=== PATIENT | female | born 1945 | race Caucasian/White ===

== ENCOUNTER 2016-12-19 09:14 | Outpatient (CLI) | payer OTHER ==
--- NOTE | 2016-12-19 11:08 | DIAGNOSTIC IMAGING REPORT ---
PROCEDURE: MG BILATERAL SCREENING W/CAD INDICATION: SCREENING TECHNIQUE: Standard CC and MLO views bilaterally. Computer aided detection was used. COMPARISON: 06/09/2015 FINDINGS: Mildly dense fibrofatty tissue is present bilaterally. Stable anterior right breast cystic structure. No developing densities, areas of architectural distortion, or suspicious microcalcifications. IMPRESSION: 1. Stable mammograms without radiographic evidence of malignancy. RESULT CODE: 2- Benign findings. A. A negative report should not delay biopsy if a dominant or clinically suspicious mass is present. 10-15% of cancers are not identified by x-ray. B. A negative report may reinforce clinical impression. C. Adenosis and dense breasts may obscure an underlying neoplasm. D. False positive reports average 6-10%. E.. A yearly screening mammogram is recommended. A reminder letter will be scheduled.
[2016-12-21] MEDS ORDERED: TRAMADOL HCL50 MG PO (18:12)
[2016-12-21] MEDS ORDERED: ACIPHEX20 MG PO (18:13)
[2016-12-21] MEDS ORDERED: ATIVAN0.5 MG PO (18:13)
== END 2016-12-19 23:00 ==
LOC: MAM SRH 09:14
DX: Z12.31 Encounter for screening mammogram for malignant neoplasm of breast (principal)

== ENCOUNTER 2017-01-29 09:58 | Outpatient (CLI) | payer OTHER ==
[~2017-01-29 09:58] MED LIST: ACIPHEX20 MG PO; ATIVAN0.5 MG PO; TRAMADOL HCL50 MG PO
--- NOTE | 2017-01-29 10:42 | DIAGNOSTIC IMAGING REPORT ---
PROCEDURE: US ABDOMEN VASCULAR-AAA INDICATION: AORTIC ANEURYSM TECHNIQUE: Grijalva scale, color Doppler and spectral ultrasound of the abdominal aorta. COMPARISON: CTA abdomen pelvis 03/23/2016. FINDINGS: Moderate atherosclerosis with mid abdominal aortic peripheral thrombus. Maximal diameter of the aorta: 4.1 cm proximally, 4.5 cm mid and 4.3 cm distally. Both iliac arteries measure 1.5 cm in diameter. IMPRESSION: 1. Stable 4.5 cm mid and distal abdominal aortic aneurysm.
== END 2017-01-29 23:00 ==
LOC: US SRH 09:58
DX: I71.4 Abdominal aortic aneurysm, without rupture (principal)

== ENCOUNTER 2017-02-05 16:14 | Emergency (ER) | payer OTHER ==
--- NOTE | 2017-02-05 18:16 | DIAGNOSTIC IMAGING REPORT ---
PROCEDURE: XR ABDOMEN 1 VIEW INDICATION: ABDOMINAL PAIN TECHNIQUE: AP supine view (two images). COMPARISON: None. FINDINGS: Moderate stool. Small bowel pattern is normal. Moderate to marked degenerative changes of the lumbar spine. Surgical clips overlying the symphysis pubis. IMPRESSION: 1. Moderate stool. While this may be normal, consider obstipation. 2. Moderate to marked degenerative changes of the lumbar spine. 3. Otherwise negative abdomen.
--- NOTE | 2017-02-05 18:19 | DIAGNOSTIC IMAGING REPORT ---
PROCEDURE: XR LUMBAR SPINE 2 OR 3 VIEWS INDICATION: LOWER BACK PAIN TECHNIQUE: Three views. COMPARISON: None. FINDINGS: There are moderate to marked degenerate change of the lower lumbar spine with marked disc space narrowing at L4-5 and L5-S1, and marked facet disease. There are mild degenerative changes of the mid and upper lumbar spine with minimal old wedge compression deformities of the lower thoracic levels. There is no evidence of acute process or fracture. IMPRESSION: 1. Moderate to marked degenerative changes of the lumbar spine most pronounced at the lower lumbar levels (L4-5 and L5-S1) 2. Findings discussed with Dr. Zurita.
--- NOTE | 2017-02-05 23:38 | DIAGNOSTIC IMAGING REPORT ---
PROCEDURE: ABDOMEN/PELVIS WITH CONTRAST CLINICAL INDICATION: ABDOMINAL PAIN TECHNIQUE: 135 ml of Isovue 300 were injected intravenously and axial images were obtained of the abdomen and pelvis with sagittal and coronal reformations. COMPARISON: 04/19/2016 FINDINGS: ABDOMEN: Clear lung bases. Normal sized heart. No hiatal hernia. Mildly diffusely hypodense liver. Surgically absent gallbladder. Bilateral renal cysts. Fusiform dilatation of the mid to distal abdominal aorta. Circumferential mural thrombus. The aorta measures 4.6 cm in maximal AP diameter by about 4.1 cm transversely. The adrenal glands, pancreas, spleen are unremarkable. There are no suspicious calcifications, retroperitoneal adenopathy or masses. The stomach, upper bowel loops, and mesentery are normal. Tiny fat containing ventral abdominal wall hernia. No free fluid or inflammation. PELVIS: The appendix and uterus are surgically absent. Pelvic bowel loops are normal. No adenopathy, free fluid, or pelvic mass. Moderately severe disc degeneration in the lower lumbar spine. IMPRESSION: 1. No acute process. 2. Stable abdominal aortic aneurysm. 3. Surgically absent gallbladder, appendix, uterus. 4. Findings called to the emergency room. All CT scans at this facility use dose modulation, iterative reconstruction, and/or weight-based dosing when appropriate to reduce radiation dose to as low as reasonably achievable.
--- NOTE | 2017-02-06 00:13 | ED CLINICAL REPORT ---
Clinical Report - Physicians/Mid Levels [facility] [address] [place] [address] 02/05/2017 16:14 Patient: MARKUS VARGHESE Time Seen: 16:21 Feb 05 2017. Arrived- By private vehicle. Historian- patient. CPT: ER phys charges level 4 (#[id number]). HISTORY OF PRESENT ILLNESS Chief Complaint: ABDOMINAL PAIN and FLANK PAIN and back pain. It is described as "pain". It is described as located in the right side of the back, right abdomen, right lower quadrant, right pelvis and left abdomen. It is described as located in the left lower quadrant, left pelvis and left side of the back, in the periumbilical area and in the pelvic area. This started today Back pain is worse than usual and appears to radiate to the front from both sides. Pain also radiates down both legs to her feet. she can be no more specific than "the pain is in my bones" and is still present. At its maximum, severity described as moderate. When seen in the E.D., severity described as moderate. Modifying factors- worsened by movement. Relieved by rest. The patient has had nausea and loss of appetite. No vomiting or diarrhea. No recent travel. Similar symptoms previously: Several times, milder. Diagnosis: constipation (low back pain). Recent medical care: The patient was seen recently at another facility in a clinic. REVIEW OF SYSTEMS The patient has had constipation and back pain (chronically). No black stools, hematemesis, difficulty with urination, pain with urination or urinary frequency. No fever, sore throat, chest pain, difficulty breathing or cough. No joint pain, skin rash or chills. All systems otherwise negative, except as recorded above. PAST HISTORY Hernia. Aortic Aneurysm. US done 1 week ago showing stable AAA at 4.5 cm. Abdominal Pain. Fibromyalgia. UTI - Urinary Tract Infection. Chronic Back Pain. Back Pain. --16:26 Alexander Valenzuela R.N. Shoulder Injury. --16:28 Alexander Valenzuela R.N. GERD. Appendectomy. Bladder Suspension. Cholecystectomy. Hysterectomy. --16:27 Alexander Valenzuela R.N. Shoulder Surgery. Medications: Multivitamins Oral. Ativan. Asophex. Tramadol. Allergies: "most antibiotics". Codeine. morphine. Penicillins. Sulfa Antibiotics. Tetanus Toxoids. Toradol. SOCIAL HISTORY Light tobacco smoker (cigarette)- less than 1/2 a pack per day. No alcohol use or drug use. ADDITIONAL NOTES The nursing notes have been reviewed. PHYSICAL EXAM Vital Signs: 02/05/2017 16:23 BP: 140/70. HR: 72. RR: 16. O2 saturation: 92%. Temp: 98.2 F. Pain level now: 07/30. Appearance: Alert. Appears to be in pain. Patient in mild distress. Eyes: Eyes normal inspection. ENT: Pharynx normal. Neck: Normal inspection. CVS: Normal heart rate and rhythm. Heart sounds normal. Pulses normal. Respiratory: No respiratory distress. Breath sounds normal. Chest nontender. Abdomen: Soft. Moderate tenderness in the right and left side of the abdomen, periumbilical area, right lower quadrant, suprapubic area, left lower quadrant and lower abdomen. Bowel sounds normal. No mass. Back: Normal inspection. Skin: Skin warm. Normal skin color. No rash. Extremities: Extremities exhibit normal ROM. No lower extremity edema. Neuro: Oriented X 3. No motor deficit. No sensory deficit. Reflexes normal. LABS, X-RAYS, AND EKG Abdominal CT: IMPRESSION: 1. No acute process. 2. Stable abdominal aortic aneurysm. 3. Surgically absent gallbladder, appendix, uterus. The study was interpreted contemporaneously by me and discussed with the radiologist. Laboratory Tests: UA-Culture if indicated: (LEVAR: 02/05/2017 15:22) ( MsgRcvd 02/05/2017 17:10) Final results Test Result Flag Units (Reference) URINE COLOR STRAW URINE APPEARANCE CLEAR URINE GLUCOSE NEGATIVE (NEGATIVE) URINE BILIRUBIN NEGATIVE (NEGATIVE) URINE KETONE NEGATIVE (NEGATIVE) URINE SPECIFIC GRAVITY <= 1.005 L (1.010-1.030) URINE PH 6.0 (5.0-8.0) URINE PROTEIN NEGATIVE (NEGATIVE) URINE UROBILINOGEN 0.2 EU/dL (0.2-1.0) URINE NITRITE NEGATIVE (NEGATIVE) URINE BLOOD NEGATIVE (NEGATIVE) URINE LEUK ESTERASE TRACE (NEGATIVE) URINE RBC NONE SEEN rbc/hpf (0-1) URINE WBC 10-15 wbc/hpf (0-1) URINE EPITHELIAL CELLS >15 EPI/hpf (0-5) URINE BACTERIA MODERATE (2+ TO 3+) (NONE SEEN) URINE COMMENT CULTURE INDICATED URINE CULTURES ARE SET-UP BASED ON THE FOLLOWING CRITERIA:POSITIVE NITRITEPOSITIVE LEUKOCYTE ESTERASEGREATER THAN 10 WHITE BLOOD CELLSMODERATE (2+) OR GREATER BACTERIA CBC w Diff: (LEVAR: 02/05/2017 16:55) ( [facility] 02/05/2017 17:10) Final results Test Result Flag Units (Reference) WHITE BLOOD COUNT 12.9 H K/uL (4.5-11.5) RED BLOOD COUNT 5.77 H M/uL (4.00-5.20) HEMOGLOBIN 16.7 H gm/dL (12.0-16.0) HEMATOCRIT 49.9 H % (36.0-46.0) MEAN CELL VOLUME 86 fL (80-100) MEAN CORPUSCULAR HGB 29 pg (26-34) MEAN CORPUSCULAR HGB CONC 34 g/dL (31-37) RED CELL DISTRIBUTION WIDTH 14.6 % (11.6-14.8) PLATELET COUNT 214 K/uL (150-400) NEUTROPHIL % 62.1 % (50-75) LYMPH % 28.3 % (25-40) MONO % 6.8 % (3-14) EOSINOPHIL % 2.1 % (0-4) BASOPHIL % 0.7 % (0-2) Lipase: (LEVAR: 02/05/2017 16:55) ( [facility] 02/05/2017 17:26) Final results Test Result Flag Units (Reference) LIPASE 291 U/L (73-393) AMYLASE 64 U/L (25-115) CHEM 13 PANEL: (LEVAR: 02/05/2017 16:55) ( [facility] 02/05/2017 17:34) Final results Test Result Flag Units (Reference) GLUCOSE 146 H mg/dL (70-110) BUN 12 mg/dL (7-18) CREATININE 0.7 mg/dL (0.6-1.3) Estimated GFR >60 mL/min Estimated GFR- >60 mL/min Note: Persistent reduction over 3 months in eGFR<60 mL/min/1.73 m2 defines CKD. Patients with eGFR values>=60 mL/min/1.73 m2 may also have CKD if evidence ofpersistent proteinuria. Additional information may be foundat www.kidney.org. SODIUM 141 mmol/L (136-145) POTASSIUM 3.8 mmol/L (3.5-5.1) CHLORIDE 105 mmol/L (98-107) CARBON DIOXIDE 27 mmol/L (21-32) CALCIUM 9.0 mg/dL (8.5-10.1) TOTAL PROTEIN 7.2 g/dL (6.4-8.2) ALBUMIN 3.1 L g/dL (3.3-5.0) BILIRUBIN, TOTAL 0.3 mg/dL (0.0-1.0) ALKALINE PHOSPHATASE 105 U/L (46-116) AST (SGOT) 16 U/L (15-37) ALT (SGPT) 24 U/L (12-78) CPK 67 U/L (24-260) MAGNESIUM 1.8 mg/dL (1.8-2.4) TROPONIN I <0.05 L ng/mL (0.00-1.5) TROPONIN REFERENCE RANGE:<0.1 NEGATIVE0.1-1.5 INDETERMINANT>1.5 POSITIVE . PROGRESS AND PROCEDURES Course of Care: Patient is stable. Patient/family counseled. Old medical records reviewed. Disposition: Discharged. Condition: stable. CLINICAL IMPRESSION Back pain. Thoracic and lumbar radiculopathy present. T10-11 radicular back pain L5-S1 Radicular back pain. INSTRUCTIONS No driving or operating machinery while taking medication. Sedative medication was given during your visit. No strenuous activity. Rest. Drink plenty of fluids. Warnings: Further evaluation is necessary. SEDATIVE MEDICATION: You were given sedative medication during your visit. Do not drive or operate dangerous machinery. GENERAL WARNINGS: Return or contact your physician immediately if your condition worsens or changes unexpectedly, if not improving as expected, or if other problems arise. Your Current Medications: CONTINUE TAKING THE FOLLOWING MEDICATIONS: Asophex*. Ativan*. Milk of Magnesia Oral. Multivitamins Oral. Tramadol*. Prescription Medications: Ultram 50 mg: take 1-2 orally every 6 hours as needed for pain. Dispense fifteen (15). No refills. Substitution is permissible. Understanding of the discharge instructions verbalized by patient. Follow-up with: Jose Eduardo Nogueira MD, [facility], , [address], [place], [address] Follow up in one week. Call for the next available appointment. (Electronically signed by Allen Reyes MD 02/07/2017 21:30)
--- NOTE | 2017-02-06 00:13 | ED CLINICAL REPORT ---
Clinical Report - Physicians/Mid Levels [facility] [address] [place] [address] 02/05/2017 16:14 Patient: MARKUS VARGHESE Time Seen: 16:21 Feb 05 2017. Arrived- By private vehicle. Historian- patient. CPT: ER phys charges level 4 (#[id number]). HISTORY OF PRESENT ILLNESS Chief Complaint: ABDOMINAL PAIN and FLANK PAIN and back pain. It is described as "pain". It is described as located in the right side of the back, right abdomen, right lower quadrant, right pelvis and left abdomen. It is described as located in the left lower quadrant, left pelvis and left side of the back, in the periumbilical area and in the pelvic area. This started today Back pain is worse than usual and appears to radiate to the front from both sides. Pain also radiates down both legs to her feet. she can be no more specific than "the pain is in my bones" and is still present. At its maximum, severity described as moderate. When seen in the E.D., severity described as moderate. Modifying factors- worsened by movement. Relieved by rest. The patient has had nausea and loss of appetite. No vomiting or diarrhea. No recent travel. Similar symptoms previously: Several times, milder. Diagnosis: constipation (low back pain). Recent medical care: The patient was seen recently at another facility in a clinic. REVIEW OF SYSTEMS The patient has had constipation and back pain (chronically). No black stools, hematemesis, difficulty with urination, pain with urination or urinary frequency. No fever, sore throat, chest pain, difficulty breathing or cough. No joint pain, skin rash or chills. All systems otherwise negative, except as recorded above. PAST HISTORY Hernia. Aortic Aneurysm. US done 1 week ago showing stable AAA at 4.5 cm. Abdominal Pain. Fibromyalgia. UTI - Urinary Tract Infection. Chronic Back Pain. Back Pain. --16:26 Alexander Valenzuela R.N. Shoulder Injury. --16:28 Alexander Valenzuela R.N. GERD. Appendectomy. Bladder Suspension. Cholecystectomy. Hysterectomy. --16:27 Alexander Valenzuela R.N. Shoulder Surgery. Medications: Multivitamins Oral. Ativan. Asophex. Tramadol. Allergies: "most antibiotics". Codeine. morphine. Penicillins. Sulfa Antibiotics. Tetanus Toxoids. Toradol. SOCIAL HISTORY Light tobacco smoker (cigarette)- less than 1/2 a pack per day. No alcohol use or drug use. ADDITIONAL NOTES The nursing notes have been reviewed. PHYSICAL EXAM Vital Signs: 02/05/2017 16:23 BP: 140/70. HR: 72. RR: 16. O2 saturation: 92%. Temp: 98.2 F. Pain level now: 07/30. Appearance: Alert. Appears to be in pain. Patient in mild distress. Eyes: Eyes normal inspection. ENT: Pharynx normal. Neck: Normal inspection. CVS: Normal heart rate and rhythm. Heart sounds normal. Pulses normal. Respiratory: No respiratory distress. Breath sounds normal. Chest nontender. Abdomen: Soft. Moderate tenderness in the right and left side of the abdomen, periumbilical area, right lower quadrant, suprapubic area, left lower quadrant and lower abdomen. Bowel sounds normal. No mass. Back: Normal inspection. Skin: Skin warm. Normal skin color. No rash. Extremities: Extremities exhibit normal ROM. No lower extremity edema. Neuro: Oriented X 3. No motor deficit. No sensory deficit. Reflexes normal. LABS, X-RAYS, AND EKG Abdominal CT: IMPRESSION: 1. No acute process. 2. Stable abdominal aortic aneurysm. 3. Surgically absent gallbladder, appendix, uterus. The study was interpreted contemporaneously by me and discussed with the radiologist. Laboratory Tests: UA-Culture if indicated: (LEVAR: 02/05/2017 15:22) ( MsgRcvd 02/05/2017 17:10) Final results Test Result Flag Units (Reference) URINE COLOR STRAW URINE APPEARANCE CLEAR URINE GLUCOSE NEGATIVE (NEGATIVE) URINE BILIRUBIN NEGATIVE (NEGATIVE) URINE KETONE NEGATIVE (NEGATIVE) URINE SPECIFIC GRAVITY <= 1.005 L (1.010-1.030) URINE PH 6.0 (5.0-8.0) URINE PROTEIN NEGATIVE (NEGATIVE) URINE UROBILINOGEN 0.2 EU/dL (0.2-1.0) URINE NITRITE NEGATIVE (NEGATIVE) URINE BLOOD NEGATIVE (NEGATIVE) URINE LEUK ESTERASE TRACE (NEGATIVE) URINE RBC NONE SEEN rbc/hpf (0-1) URINE WBC 10-15 wbc/hpf (0-1) URINE EPITHELIAL CELLS >15 EPI/hpf (0-5) URINE BACTERIA MODERATE (2+ TO 3+) (NONE SEEN) URINE COMMENT CULTURE INDICATED URINE CULTURES ARE SET-UP BASED ON THE FOLLOWING CRITERIA:POSITIVE NITRITEPOSITIVE LEUKOCYTE ESTERASEGREATER THAN 10 WHITE BLOOD CELLSMODERATE (2+) OR GREATER BACTERIA CBC w Diff: (LEVAR: 02/05/2017 16:55) ( [facility] 02/05/2017 17:10) Final results Test Result Flag Units (Reference) WHITE BLOOD COUNT 12.9 H K/uL (4.5-11.5) RED BLOOD COUNT 5.77 H M/uL (4.00-5.20) HEMOGLOBIN 16.7 H gm/dL (12.0-16.0) HEMATOCRIT 49.9 H % (36.0-46.0) MEAN CELL VOLUME 86 fL (80-100) MEAN CORPUSCULAR HGB 29 pg (26-34) MEAN CORPUSCULAR HGB CONC 34 g/dL (31-37) RED CELL DISTRIBUTION WIDTH 14.6 % (11.6-14.8) PLATELET COUNT 214 K/uL (150-400) NEUTROPHIL % 62.1 % (50-75) LYMPH % 28.3 % (25-40) MONO % 6.8 % (3-14) EOSINOPHIL % 2.1 % (0-4) BASOPHIL % 0.7 % (0-2) Lipase: (LEVAR: 02/05/2017 16:55) ( [facility] 02/05/2017 17:26) Final results Test Result Flag Units (Reference) LIPASE 291 U/L (73-393) AMYLASE 64 U/L (25-115) CHEM 13 PANEL: (LEVAR: 02/05/2017 16:55) ( [facility] 02/05/2017 17:34) Final results Test Result Flag Units (Reference) GLUCOSE 146 H mg/dL (70-110) BUN 12 mg/dL (7-18) CREATININE 0.7 mg/dL (0.6-1.3) Estimated GFR >60 mL/min Estimated GFR- >60 mL/min Note: Persistent reduction over 3 months in eGFR<60 mL/min/1.73 m2 defines CKD. Patients with eGFR values>=60 mL/min/1.73 m2 may also have CKD if evidence ofpersistent proteinuria. Additional information may be foundat www.kidney.org. SODIUM 141 mmol/L (136-145) POTASSIUM 3.8 mmol/L (3.5-5.1) CHLORIDE 105 mmol/L (98-107) CARBON DIOXIDE 27 mmol/L (21-32) CALCIUM 9.0 mg/dL (8.5-10.1) TOTAL PROTEIN 7.2 g/dL (6.4-8.2) ALBUMIN 3.1 L g/dL (3.3-5.0) BILIRUBIN, TOTAL 0.3 mg/dL (0.0-1.0) ALKALINE PHOSPHATASE 105 U/L (46-116) AST (SGOT) 16 U/L (15-37) ALT (SGPT) 24 U/L (12-78) CPK 67 U/L (24-260) MAGNESIUM 1.8 mg/dL (1.8-2.4) TROPONIN I <0.05 L ng/mL (0.00-1.5) TROPONIN REFERENCE RANGE:<0.1 NEGATIVE0.1-1.5 INDETERMINANT>1.5 POSITIVE . PROGRESS AND PROCEDURES Course of Care: Patient is stable. Patient/family counseled. Old medical records reviewed. Disposition: Discharged. Condition: stable. CLINICAL IMPRESSION Back pain. Thoracic and lumbar radiculopathy present. T10-11 radicular back pain L5-S1 Radicular back pain. INSTRUCTIONS No driving or operating machinery while taking medication. Sedative medication was given during your visit. No strenuous activity. Rest. Drink plenty of fluids. Warnings: Further evaluation is necessary. SEDATIVE MEDICATION: You were given sedative medication during your visit. Do not drive or operate dangerous machinery. GENERAL WARNINGS: Return or contact your physician immediately if your condition worsens or changes unexpectedly, if not improving as expected, or if other problems arise. Your Current Medications: CONTINUE TAKING THE FOLLOWING MEDICATIONS: Asophex*. Ativan*. Milk of Magnesia Oral. Multivitamins Oral. Tramadol*. Prescription Medications: Ultram 50 mg: take 1-2 orally every 6 hours as needed for pain. Dispense fifteen (15). No refills. Substitution is permissible. Understanding of the discharge instructions verbalized by patient. Follow-up with: Jose Eduardo Nogueira MD, [facility], , [address], [place], [address] Follow up in one week. Call for the next available appointment. (Electronically signed by Allen Reyes MD 02/07/2017 21:30)
--- NOTE | 2017-02-06 00:14 | ED ORDER SUMMARY ---
..... Patient: MARKUS VARGHESE OrderSheet Formerly [facility] VisitID: [id number] [place] [address] 72y, F Registration Date/Time: 02/05/2017 ORDER SHEET Weight: 102.9 kg (stated) Allergies: "most antibiotics", Codeine, morphine, Penicillins, Toradol, Sulfa Antibiotics, Tetanus Toxoids GENERAL ORDERS: Lumbar Spine 2 or 3V Urgent (16:51 02/05/2017 Luciano WILSON) (Ack 16:53 PWeiler ER Tech1) (17:54 PWeiler ER Tech1) Abdomen 1V Urgent (16:52 02/05/2017 Luciano WILSON) (Ack 16:53 PWeiler ER Tech1) (17:54 PWeiler ER Tech1) Cardiac Panel Stat (16:52 02/05/2017 Luciano WILSON) (Ack 16:53 LUPEeitimmy ER Tech1) (16:55 MCook R.N.) Lipase Urgent (16:52 02/05/2017 Luciano WILSON) (Ack 16:53 PWeiler ER Tech1) (16:55 MCook R.N.) Amylase Urgent (16:52 02/05/2017 Luciano WILSON) (Ack 16:53 PWeitimmy ER Tech1) (16:55 MCook R.N.) UA-Culture if indicated Urgent (16:52 02/05/2017 Luciano WILSON) (Ack 16:53 PWeitimmy ER Tech1) (16:55 MCook R.N.) US Abdomen Limited (Yes) Urgent (19:45 02/05/2017 Luciano WILSON) (Ack 19:51 Daly) (23:15 CHagerty ER Supervisor/Port Director) (Cancelled: Other23:44 Daly) US Abdomen/Vascular/AAA (Yes) Urgent (20:54 02/05/2017 Luciano WILSON) (Ack 21:07 Daly) (23:15 CHagerty ER Supervisor/Port Director) CT Abd/Pel w Cont (No) (N/A) Urgent (21:02 02/05/2017 Luciano WILSON) (Ack 21:07 Valdezdivine) (23:15 Tianna ER Supervisor/Port Director) MEDICATION ORDERS: Demerol IM 25 mg (NOW) (19:49 02/05/2017 Luciano WILSON) (19:58 Caroline R.N.) Zofran ODT PO 4 mg (NOW) (19:49 02/05/2017 Luciano WILSON) (19:58 Caroline R.N.) IV FLUIDS: IV NS : initial bolus none -, then 100 mL/hr for 4h (NOW); Routine (16:50 02/05/2017 Luciano WILSON) (17:07 Caroline R.N.) Demerol IV 12.5 mg (NOW) (16:50 02/05/2017 Luciano WILSON) (17:11 Caroline R.N.) Ativan IV 0.5 mg (NOW) (16:50 02/05/2017 Luciano WILSON) (17:11 Caroline R.N.) Demerol IV 12.5 mg (NOW) (19:35 02/05/2017 Luciano WILSON) (Cancelled: Other19:49 Luciano WILSON) Zofran IV 4 mg (NOW) (19:36 02/05/2017 Luciano WILSON) (Cancelled: Other19:49 Luciano WILSON) Demerol IV 12.5 mg (HIGH ALERT MEDICATION, NOW) (00:11 02/06/2017 Federico WILSON) (0:45 Chi R.N.) ORDER SHEET NOTES: [Electronically signed by Tato Neumann R.N. (00:57 02/06/2017)] [Electronically signed by Allen Reyes MD (21:30 02/07/2017)] [Electronically locked/signed by Tato Neumann R.N. (00:57 02/06/2017)]
--- NOTE | 2017-02-06 00:14 | ED NURSING NOTES ---
Clinical Report - Nurses [facility] [address] [place] [address] 02/05/2017 16:14 Patient: MARKUS VARGHESE TRIAGE Triage time 16:23 Feb 05 2017. Acuity: LEVEL 3. Chief Complaint: ABDOMINAL PAIN and (Worsening back pain). Alert. --16:32 Alexander Valenzuela R.N. 16:23 02/05/17. BP: 140/70. HR: 72. RR: 16. O2 saturation: 92% on room air. Temp: 98.2 F. Pain level now: 07/30. --16:32 Alexander Valenzuela R.N. Weight: 102.9 kg stated. Height/Length: 66 inches Per Patient. BMI: 36.6. --16:21 Alexander Valenzuela R.N. Medications Tramadol. --16:28 Alexander Valenzuela R.N. Asophex. --16:29 Alexander Valenzuela R.N. Ativan. --16:29 Alexander Valenzuela R.N. Multivitamins Oral. --16:29 Alexander Valenzuela R.N. Milk of Magnesia Oral. --16:35 Alexander Valenzuela R.N. Allergies "most antibiotics". Codeine. morphine. Penicillins. Toradol. --16:29 Alexander Valenzuela R.N. Sulfa Antibiotics. --16:30 Alexander Valenzuela R.N. Tetanus Toxoids. --16:30 Alexander Valenzuela R.N. History Arrived by private vehicle. Historian: patient. Accompanied by family. This started today. She has had nausea and abdominal pain. 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 PAST MEDICAL HX: Diabetes mellitus (Type 2 - no medications, diet controlled). Gallstones. Immunizations: up-to-date. SOCIAL HX: Current every day heavy tobacco smoker- less than 1 pack per day. No alcohol use or drug use. No infectious disease exposure. FALL RISK ASSESSMENT: Fall risk assessment completed. No fall risk identified. NUTRITIONAL RISK ASSESSMENT: The nutritional risk assessment revealed no deficiencies. FUNCTIONAL ASSESSMENT: Functional assessment: no impairments noted. LEARNING NEEDS ASSESSMENT: The learning needs assessment revealed no barriers. SKIN INTEGRITY ASSESSMENT: Skin integrity risk assessment completed. No skin integrity risk identified. --16:32 Alexander Valenzuela R.N. The patient has had constipation. --16:35 Alexander Valenzuela R.N. PROBLEMS: Hernia. Aortic Aneurysm. Abdominal Pain. Fibromyalgia. Chronic Back Pain. Back Pain. --16:26 Alexander Valenzuela R.N. Shoulder Injury. --16:28 Alexander Valenzuela R.N. GERD. --16:29 Alexander Valenzuela R.N. The following entry was modified by Allen Reyes MD, 23:42 <<STRICKEN ENTRY-- UTI - Urinary Tract Infection. --13:57 Alexander Valenzuela R.N. --END STRIKE>> The following entry was modified by Allen Reyes MD, 00:13 Reason - Struck from template <<STRICKEN ENTRY-- UTI - Urinary Tract Infection [RuleOut]. --00:13 Allen Reyes MD --END STRIKE>>. ADDITIONAL SURGERIES: Appendectomy. Bladder Suspension. Cholecystectomy. Hysterectomy. --16:27 Alexander Valenzuela R.N. Shoulder Surgery. --16:28 Alexander Valenzuela R.N. Interventions ID band on patient. To treatment room. --16:32 Alexander Valenzuela R.N. PHYSICAL ASSESSMENT To room via wheelchair. GENERAL / NEURO / PSYCH: Alert. Oriented X 4. Appears in pain. HEENT: Mucous membranes are pink. RESPIRATORY: Respirations not labored. GI / : Abdominal distention. Rebound tenderness. Bowel sounds within normal limits. SKIN: Skin is pale. Skin is warm. --16:34 Alexander Valenzuela R.N. NURSING PROGRESS NOTES The plan of care for this patient has been created. Monitoring of patient in place. Patient gowned. Head of bed elevated. Reassurance given. Two patient identifiers checked. Call light placed in reach. Side rails up x 2. Bed placed in lowest position. Patient ready for evaluation- chart flagged. --16:35 Alexander Valenzuela R.N. ( Pt is resting in bed, grandson at bedside.). --16:35 Alexander Valenzuela R.N. 17:02 02/05/2017 Site #1 started via IV in the left antecubital space with an 20g angiocath, with aseptic technique and good blood return; one attempt. Blood drawn: rainbow set. Labeled in the presence of the patient and sent to the lab. Saline lock flushed with 10 mL saline. --17:07 Alexander Valenzuela R.N. 17:07 02/05/2017 Started bag #1 1000 mL IV Fluids IV NS (Saline); at 100 mL/hr over 4 hour(s) via site #1 via IV pump. Allergies verified and confirmed 5 rights. IV patency established. IV site checked: no pain, redness, or swelling. IV flushed thoroughly pre- and post-medication administration. Completed per protocol. --17:07 Alexander Valenzuela R.N. 17:11 02/05/2017 Demerol (Meperidine HCl) IVP 12.5 mg given. via site #1. Allergies verified and confirmed 5 rights. IV patency established. IV site checked: no pain, redness, or swelling. IV flushed thoroughly pre- and post-medication administration. IVP given by RN. --17:11 Alexander Valenzuela R.N. 17:11 02/05/2017 Ativan (LORazepam) IVP 0.5 mg given. via site #1. Allergies verified, confirmed 5 rights and sedative warning given to the patient. IV patency established. IV site checked: no pain, redness, or swelling. IV flushed thoroughly pre- and post-medication administration. IVP given by RN. --17:11 Alexander Valenzuela R.N. 17:09 02/05/17. BP: 114/53. HR: 74. RR: 18. O2 saturation: 93% on room air. Pain level now: 07/30. --17:14 Alexander Valenzuela R.N. Patient ID band checked for patient name and birthdate: patient confirmed. Instructions provided to collect clean catch urine and patient verbalized understanding. Clean catch urine collected with return of yellow-colored urine; sample sent to lab for urinalysis. Specimen labeled in the presence of the patient. --17:14 Alexander Valenzuela R.N. ( Pt is resting in bed, provided with warm blanket, grandson at bedside, Pt talkative, cooperative, denies further needs. WCTM.). --17:19 Alexander Valenzuela R.N. ( Pt's 02 sats decrease when she is at rest or asleep. When she awakens or talks they increase to 96% on RA. WCTM. Pulse ox in place.). --17:25 Alexander Valenzuela R.N. 17:24 02/05/17. O2 saturation: 88% on room air. --17:25 Alexander Valenzuela R.N. 17:25 02/05/17. O2 saturation: 96% on room air. --17:26 Alexander Valenzuela R.N. Patient transported to radiology by stretcher with tech. --17:33 Alexander Valenzuela R.N. ( Assisted Pt up to commode and back to bed. Pt is still painful but did report that the pain medication seems to have helped her relax a little while. Lu at bedside.). --18:51 Alexander Valenzuela R.N. 18:50 02/05/17. BP: 116/69. HR: 66. O2 saturation: 95% on room air. Pain level now: 07/30. --18:51 Alexander Valenzuela R.N. 18:27 02/05/2017 Demerol IVP Response: no adverse reaction symptoms have improved. --18:52 Alexander Valenzuela R.N. 18:27 02/05/2017 Ativan IVP Response: no adverse reaction pain is improving. Symptoms have improved. --18:52 Alexander Valenzuela R.N. 19:58 02/05/2017 Demerol (Meperidine HCl) IM 25 mg given. Given in the left deltoid. Allergies verified, confirmed 5 rights and sedative warning given to the patient. --19:58 Alexander Valenzuela R.N. 19:58 02/05/2017 Zofran ODT (Ondansetron) PO Oral Disintegrating Tablets 4 mg given. Allergies verified and confirmed 5 rights. --19:58 Alexander Valenzuela R.N. 20:01 02/05/2017 Site #1 removed. Bandage applied (Clotted. Could not flush. aware.). --20:01 Alexander Valenzuela R.N. 20:01 02/05/2017 IV Fluids IV NS Discontinued: bag #1 infused. Total amount infused: 400 mL. IV patency established. IV site checked: no pain, redness, or swelling. IV flushed thoroughly. --20:01 Alexander Valenzuela R.N. 20:00 02/05/17. BP: 150/86. HR: 72. O2 saturation: 94% on room air. --20:04 Alexander Valenzuela R.N. 20:53 02/05/2017 Demerol IM Response: no adverse reaction pain is improving. Symptoms have improved. --20:53 Alexander Valenzuela R.N. 20:53 02/05/2017 Zofran ODT PO Response: no adverse reaction. --20:53 Alexander Valenzuela R.N. ( Assisted Pt up to commode and back to bed. Pt waiting on CT of abd.). --21:24 Alexander Valenzuela R.N. 21:23 02/05/17. BP: 137/66. HR: 66. O2 saturation: 94% on room air. Pain level now: 06/30. --21:24 Alexander Valenzuela R.N. ( Report received from Alexander Valenzuela RN). --22:04 Tato Neumann R.N. 22:45 02/05/2017 Site #2 started via IV in the left antecubital space with an 20g angiocath, with aseptic technique and good blood return; one attempt. Saline lock flushed with 10 mL saline. --22:45 Tato Neumann R.N. ( tooling engineering tech notified me that the patient needs an IV for her CT. I have inserted an IV and I notified radiology that she is ready for the scan.). --22:46 Tato Neumann R.N. Patient waiting for CT results. --23:45 Tato Neumann R.N. Patient waiting for disposition. --23:45 Tato Neumann R.N. 00:42 02/06/2017 Demerol (Meperidine HCl) IVP 12.5 mg given. via site #2. Allergies verified and confirmed 5 rights. IV patency established. IV site checked: no pain, redness, or swelling. IV flushed thoroughly pre- and post-medication administration. IVP given by RN. --00:45 Tato Neumann R.N. Intake & Output Urine, with return of 100 mL yellow-colored urine. --18:51 Alexander Valenzuela R.N. DISPOSITION / DISCHARGE 00:46 02/06/17. BP: 125/71. HR: 70. RR: 18. O2 saturation: 93% on room air. --00:47 Tato Neumann R.N. Condition at departure: stable. No learning barriers present. Discharge instructions provided and reviewed with the patient. Reviewed warnings. Reviewed medication(s) side effects, precautions, dosing and course information. Prescription(s) given to the patient. Treatments reviewed. Reviewed referrals for followup. Patient verbalized understanding. Written instructions provided in Tongan. The patient was discharged home and accompanied by family. She left the Emergency Department in a wheelchair and via private vehicle. Family member driving. --00:47 Tato Neumann R.N. 00:56 02/06/17. HR: 74. O2 saturation: 93% on room air. --00:56 Tato Neumann R.N. Departure time: 00:56. --00:56 Tato Neumann R.N. 00:53 02/06/2017 Site #2 removed upon discharge. Manual pressure and bandage applied. --00:57 Tato Neumann R.N. Locked/Released at 02/06/2017 0:57 by Tato Neumann R.N.
--- NOTE | 2017-02-06 00:14 | ED ORDER SUMMARY ---
..... Patient: MARKUS VARGHESE OrderSheet [facility] VisitID: [id number] [place] [address] 72y, F Registration Date/Time: 02/05/2017 ORDER SHEET Weight: 102.9 kg (stated) Allergies: "most antibiotics", Codeine, morphine, Penicillins, Toradol, Sulfa Antibiotics, Tetanus Toxoids GENERAL ORDERS: Lumbar Spine 2 or 3V Urgent (16:51 02/05/2017 Luciano WILSON) (Ack 16:53 PWeiler ER Tech1) (17:54 PWeiler ER Tech1) Abdomen 1V Urgent (16:52 02/05/2017 Luciano WILSON) (Ack 16:53 PWeiler ER Tech1) (17:54 PWeiler ER Tech1) Cardiac Panel Stat (16:52 02/05/2017 Luciano WILSON) (Ack 16:53 LUPEeitimmy ER Tech1) (16:55 MCook R.N.) Lipase Urgent (16:52 02/05/2017 Luciano WILSON) (Ack 16:53 PWeiler ER Tech1) (16:55 MCook R.N.) Amylase Urgent (16:52 02/05/2017 Luciano WILSON) (Ack 16:53 PWeitimmy ER Tech1) (16:55 MCook R.N.) UA-Culture if indicated Urgent (16:52 02/05/2017 Luciano WILSON) (Ack 16:53 PWeitimmy ER Tech1) (16:55 MCook R.N.) US Abdomen Limited (Yes) Urgent (19:45 02/05/2017 Luciano WILSON) (Ack 19:51 Daly) (23:15 CHagerty ER Meteorology Teacher) (Cancelled: Other23:44 Daly) US Abdomen/Vascular/AAA (Yes) Urgent (20:54 02/05/2017 Luciano WILSON) (Ack 21:07 Daly) (23:15 CHagerty ER Meteorology Teacher) CT Abd/Pel w Cont (No) (N/A) Urgent (21:02 02/05/2017 Luciano WILSON) (Ack 21:07 Valdezdivine) (23:15 Tianna ER Meteorology Teacher) MEDICATION ORDERS: Demerol IM 25 mg (NOW) (19:49 02/05/2017 Luciano WILSON) (19:58 Caroline R.N.) Zofran ODT PO 4 mg (NOW) (19:49 02/05/2017 Luciano WILSON) (19:58 Caroline R.N.) IV FLUIDS: IV NS : initial bolus none -, then 100 mL/hr for 4h (NOW); Routine (16:50 02/05/2017 Luciano WILSON) (17:07 Caroline R.N.) Demerol IV 12.5 mg (NOW) (16:50 02/05/2017 Luciano WILSON) (17:11 Caroline R.N.) Ativan IV 0.5 mg (NOW) (16:50 02/05/2017 Luciano WILSON) (17:11 Caroline R.N.) Demerol IV 12.5 mg (NOW) (19:35 02/05/2017 Luciano WILSON) (Cancelled: Other19:49 Luciano WILSON) Zofran IV 4 mg (NOW) (19:36 02/05/2017 Luciano WILSON) (Cancelled: Other19:49 Luciano WILSON) Demerol IV 12.5 mg (HIGH ALERT MEDICATION, NOW) (00:11 02/06/2017 Federico WILSON) (0:45 Chi R.N.) ORDER SHEET NOTES: [Electronically signed by Tato Neumann R.N. (00:57 02/06/2017)] [Electronically signed by Allen Reyes MD (21:30 02/07/2017)] [Electronically locked/signed by Tato Neumann R.N. (00:57 02/06/2017)]
--- NOTE | 2017-02-06 00:17 | DIAGNOSTIC IMAGING REPORT ---
PROCEDURE: US ABDOMEN VASCULAR-AAA INDICATION: ABDOMINAL PAIN TECHNIQUE: Grijalva scale, color Doppler (and spectral Doppler if indicated) sonographic images were obtained of the abdominal aorta and proximal common iliac arteries. COMPARISON: 01/29/2017 FINDINGS: Aortic course and contour: Normal course. Diffusely lobulated contour. Greatest AP diameter of the proximal aorta: 4.2 cm, mid aorta: 4.5 cm, distal aorta: 4.3 cm, Aortic flow: Velocities range from 41 cm/sec 50 cm/sec. Common iliac arteries: Patent with appropriate flow. No significant aneurysm. IMPRESSION: 1. Stable mid to distal abdominal aortic aneurysm. 2. No iliac artery aneurysm.
--- NOTE | 2017-02-07 21:30 | ED DISCHARGE INSTRUCTIONS ---
Patient: MARKUS VARGHESE General Instructions [facility] VisitID: [id number] [place] [address] 72y, F Registration Date/Time: 02/05/2017 Back pain. Thoracic and lumbar radiculopathy present. T10-11 radicular back pain L5-S1 Radicular back pain. INSTRUCTIONS No driving or operating machinery while taking medication. Sedative medication was given during your visit. No strenuous activity. Rest. Drink plenty of fluids. Warnings: Further evaluation is necessary. SEDATIVE MEDICATION: You were given sedative medication during your visit. Do not drive or operate dangerous machinery. GENERAL WARNINGS: Return or contact your physician immediately if your condition worsens or changes unexpectedly, if not improving as expected, or if other problems arise. Your Current Medications: CONTINUE TAKING THE FOLLOWING MEDICATIONS: Asophex*. Ativan*. Milk of Magnesia Oral. Multivitamins Oral. Tramadol*. Prescription Medications: Ultram 50 mg: take 1-2 orally every 6 hours as needed for pain. Dispense fifteen (15). No refills. Substitution is permissible. Understanding of the discharge instructions verbalized by patient. Follow-up with: Jose Eduardo Nogueira MD, [facility], , [address], [place], [address] Follow up in one week. Call for the next available appointment. ADDITIONAL INFORMATION Back Pain [Acute Or Chronic] Back pain is usually caused by an injury to the muscles or ligaments of the spine. Sometimes the disks that separate each bone in the spine may bulge and cause pain by pressing on a nearby nerve. Back pain may also appear after a sudden twisting/bending force (such as in a car accident), after a simple awkward movement, or lifting something heavy with poor body positioning. In either case, muscle spasm is often present and adds to the pain. Acute back pain usually gets better in one to two weeks. Back pain related to disk disease, arthritis in the spinal joints or spinal stenosis (narrowing of the spinal canal) can become chronic and last for months or years. Unless you had a physical injury (for example, a car accident or fall) X-rays are usually not ordered for the initial evaluation of back pain. If pain continues and does not respond to medical treatment, x-rays and other tests may be performed at a later time. Home Care: You may need to stay in bed the first few days. But, as soon as possible, begin sitting or walking to avoid problems with prolonged bed rest (muscle weakness, worsening back stiffness and pain, blood clots in the legs). When in bed, try to find a position of comfort. A firm mattress is best. Try lying flat on your back with pillows under your knees. You can also try lying on your side with your knees bent up towards your chest and a pillow between your knees. Avoid prolonged sitting. This puts more stress on the lower back than standing or walking. During the first two days after injury, apply an ICE PACK to the painful area for 20 minutes every 2-4 hours. This will reduce swelling and pain. HEAT (hot shower, hot bath or heating pad) works well for muscle spasm. You can start with ice, then switch to heat after two days. Some patients feel best alternating ice and heat treatments. Use the one method that feels the best to you. You may use acetaminophen (Tylenol) or ibuprofen (Motrin, Advil) to control pain, unless another pain medicine was prescribed. [NOTE: If you have chronic liver or kidney disease or ever had a stomach ulcer or GI bleeding, talk with your doctor before using these medicines.] Be aware of safe lifting methods and do not lift anything over 15 pounds until all the pain is gone. Follow Up with your doctor or this facility if your symptoms do not start to improve after one week. Physical therapy may be needed. [NOTE: If X-rays were taken, they will be reviewed by a radiologist. You will be notified of any new findings that may affect your care.] Get Prompt Medical Attention if any of the following occur: Pain becomes worse or spreads to your legs Weakness or numbness in one or both legs Loss of bowel or bladder control Numbness in the groin or genital area Tramadol Hydrochloride Oral tablet What is this medicine? TRAMADOL (TRA ma dole) is a pain reliever. It is used to treat moderate to severe pain in adults. How should I use this medicine? Take this medicine by mouth with a full glass of water. Follow the directions on the prescription label. If the medicine upsets your stomach, take it with food or milk. Do not take more medicine than you are told to take. Talk to your solution designer regarding the use of this medicine in children. Special care may be needed. What side effects may I notice from receiving this medicine? Side effects that you should report to your doctor or health landcare officer as soon as possible: allergic reactions like skin rash, itching or hives, swelling of the face, lips, or tongue breathing difficulties, wheezing confusion itching light headedness or fainting spells redness, blistering, peeling or loosening of the skin, including inside the mouth seizures Side effects that usually do not require medical attention (report to your doctor or health landcare officer if they continue or are bothersome): constipation dizziness drowsiness headache nausea, vomiting What may interact with this medicine? Do not take this medicine with any of the following medications: MAOIs like Carbex, Eldepryl, Marplan, Nardil, and Parnate This medicine may also interact with the following medications: alcohol or medicines that contain alcohol antihistamines benzodiazepines bupropion carbamazepine or oxcarbazepine clozapine cyclobenzaprine digoxin furazolidone linezolid medicines for depression, anxiety, or psychotic disturbances medicines for migraine headache like almotriptan, eletriptan, frovatriptan, naratriptan, rizatriptan, sumatriptan, zolmitriptan medicines for pain like pentazocine, buprenorphine, butorphanol, meperidine, nalbuphine, and propoxyphene medicines for sleep muscle relaxants naltrexone phenobarbital phenothiazines like perphenazine, thioridazine, chlorpromazine, mesoridazine, fluphenazine, prochlorperazine, promazine, and trifluoperazine procarbazine warfarin What if I miss a dose? If you miss a dose, take it as soon as you can. If it is almost time for your next dose, take only that dose. Do not take double or extra doses. Where should I keep my medicine? Keep out of the reach of children. Store at room temperature between 15 and 30 degrees C (59 and 86 degrees F). Keep container tightly closed. Throw away any unused medicine after the expiration date. What should I tell my health care provider before I take this medicine? They need to know if you have any of these conditions: brain tumor depression drug abuse or addiction head injury if you frequently drink alcohol containing drinks kidney disease or trouble passing urine liver disease lung disease, asthma, or breathing problems seizures or epilepsy suicidal thoughts, plans, or attempt; a previous suicide attempt by you or a family member an unusual or allergic reaction to tramadol, codeine, other medicines, foods, dyes, or preservatives or trying to get breast-feeding What should I watch for while using this medicine? Tell your doctor or health landcare officer if your pain does not go away, if it gets worse, or if you have new or a different type of pain. You may develop tolerance to the medicine. Tolerance means that you will need a higher dose of the medicine for pain relief. Tolerance is normal and is expected if you take this medicine for a long time. Do not suddenly stop taking your medicine because you may develop a severe reaction. Your body becomes used to the medicine. This does NOT mean you are addicted. Addiction is a behavior related to getting and using a drug for a non-medical reason. If you have pain, you have a medical reason to take pain medicine. Your doctor will tell you how much medicine to take. If your doctor wants you to stop the medicine, the dose will be slowly lowered over time to avoid any side effects. You may get drowsy or dizzy. Do not drive, use machinery, or do anything that needs mental alertness until you know how this medicine affects you. Do not stand or sit up quickly, especially if you are an older patient. This reduces the risk of dizzy or fainting spells. Alcohol can increase or decrease the effects of this medicine. Avoid alcoholic drinks. You may have constipation. Try to have a bowel movement at least every 2 to 3 days. If you do not have a bowel movement for 3 days, call your doctor or health landcare officer. Your mouth may get dry. Chewing sugarless gum or sucking hard candy, and drinking plenty of water may help. Contact your doctor if the problem does not go away or is severe. You have been given the following additional information: Back Pain (Acute Or Chronic) Tramadol Hydrochloride Oral tablet No driving or operating machinery while taking medication. Sedative medication was given during your visit. No strenuous activity. Rest. (Electronically signed by Allen Reyes MD 02/07/2017 21:30)
--- NOTE | 2017-02-07 21:30 | ED MAR SUMMARY ---
..... Medication Administration Record [facility] [address] [place] [address] Patient: MARKUS VARGHESE Visit ID: [id number] 72y, F Weight: 102.9 kg Height/Length: 66 in BMI: 36.6 ALLERGIES: Sulfa Antibiotics, "most antibiotics", Codeine, morphine, Penicillins, Toradol, Tetanus Toxoids Start 17:07 02/05/2017 Alexander Valenzuela R.N., Stop 20:01 02/05/2017 Alexander Valenzuela R.N. Medication Administered: IV NS (SALINE), Dose: IV Fluids over 4 hour(s), Rate: 100 mL/hr, Dispensed: 1000 mL bag, Site: #1 left AC. Medication Ordered: IV NS : initial bolus none -, then 100 mL/hr for 4h (NOW); Routine. Given 17:02/05/2017 Alexander Valenzuela R.N. Medication Administered: DEMEROL [IVP] (MEPERIDINE HCL), Dose: 12.5 mg IVP, Site: #1 left AC. Medication Ordered: Demerol IV 12.5 mg (NOW). Given 17:11 02/05/2017 Alexander Valenzuela R.N. Medication Administered: ATIVAN [IVP] (LORAZEPAM), Dose: 0.5 mg IVP, Site: #1 left AC. Medication Ordered: Ativan IV 0.5 mg (NOW). Given 19:58 02/05/2017 Alexander Valenzuela R.N. Medication Administered: DEMEROL [IM] (MEPERIDINE HCL), Dose: 25 mg IM. Medication Ordered: Demerol IM 25 mg (NOW). Given 19:58 02/05/2017 Alexander Valenzuela R.N. Medication Administered: ZOFRAN ODT [PO] (ONDANSETRON), Dose: 4 mg Oral Disintegrating Tablets PO. Medication Ordered: Zofran ODT PO 4 mg (NOW). Given 00:42 02/06/2017 Tato Neumann R.N. Medication Administered: DEMEROL [IVP] (MEPERIDINE HCL), Dose: 12.5 mg IVP, Site: #2 left AC. Medication Ordered: Demerol IV 12.5 mg (HIGH ALERT MEDICATION, NOW).
--- NOTE | 2017-02-07 21:30 | ED MED RECONCILIATION SUMMARY ---
Patient: MARKUS VARGHESE Medication Reconciliation Report [facility] VisitID: [id number] [address] [place] [address] 72y, F Registration Date/Time: 02/05/2017 Weight: 102.9 kg Height/Length: 66 in. BMI: 36.6 ALLERGIES: "most antibiotics", Codeine, morphine, Penicillins, Sulfa Antibiotics, Tetanus Toxoids, Toradol The patient's Home Medications are listed below: CONTINUE TAKING THE FOLLOWING MEDICATIONS: Asophex Ativan Milk of Magnesia Oral Multivitamins Oral Tramadol The source(s) of the original Home Medication information: Not obtained. The following Medications were given to the patient in the Emergency Department: IV NS IV Fluids bolus 0, then 100 mL/hr, administered: 02/05/2017 5:07:00 PM Demerol [IVP] IVP 12.5 mg, administered: 02/05/2017 5:11:00 PM Ativan [IVP] IVP 0.5 mg, administered: 02/05/2017 5:11:00 PM Demerol [IM] IM 25 mg, administered: 02/05/2017 7:58:00 PM Zofran ODT [PO] PO 4 mg, administered: 02/05/2017 7:58:00 PM Demerol [IVP] IVP 12.5 mg, administered: 02/06/2017 12:42:00 AM The following Medications were prescribed to the patient: Ultram 50 mg: take 1-2 orally every 6 hours as needed for pain. Dispense fifteen (15). No refills. Substitution is permissible. -- Allen Reyes MD
--- NOTE | 2017-02-07 21:30 | ED DISCHARGE INSTRUCTIONS ---
Patient: MARKUS VARGHESE General Instructions [facility] VisitID: [id number] [place] [address] 72y, F Registration Date/Time: 02/05/2017 Back pain. Thoracic and lumbar radiculopathy present. T10-11 radicular back pain L5-S1 Radicular back pain. INSTRUCTIONS No driving or operating machinery while taking medication. Sedative medication was given during your visit. No strenuous activity. Rest. Drink plenty of fluids. Warnings: Further evaluation is necessary. SEDATIVE MEDICATION: You were given sedative medication during your visit. Do not drive or operate dangerous machinery. GENERAL WARNINGS: Return or contact your physician immediately if your condition worsens or changes unexpectedly, if not improving as expected, or if other problems arise. Your Current Medications: CONTINUE TAKING THE FOLLOWING MEDICATIONS: Asophex*. Ativan*. Milk of Magnesia Oral. Multivitamins Oral. Tramadol*. Prescription Medications: Ultram 50 mg: take 1-2 orally every 6 hours as needed for pain. Dispense fifteen (15). No refills. Substitution is permissible. Understanding of the discharge instructions verbalized by patient. Follow-up with: Jose Eduardo Nogueira MD, [facility], , [address], [place], [address] Follow up in one week. Call for the next available appointment. ADDITIONAL INFORMATION Back Pain [Acute Or Chronic] Back pain is usually caused by an injury to the muscles or ligaments of the spine. Sometimes the disks that separate each bone in the spine may bulge and cause pain by pressing on a nearby nerve. Back pain may also appear after a sudden twisting/bending force (such as in a car accident), after a simple awkward movement, or lifting something heavy with poor body positioning. In either case, muscle spasm is often present and adds to the pain. Acute back pain usually gets better in one to two weeks. Back pain related to disk disease, arthritis in the spinal joints or spinal stenosis (narrowing of the spinal canal) can become chronic and last for months or years. Unless you had a physical injury (for example, a car accident or fall) X-rays are usually not ordered for the initial evaluation of back pain. If pain continues and does not respond to medical treatment, x-rays and other tests may be performed at a later time. Home Care: You may need to stay in bed the first few days. But, as soon as possible, begin sitting or walking to avoid problems with prolonged bed rest (muscle weakness, worsening back stiffness and pain, blood clots in the legs). When in bed, try to find a position of comfort. A firm mattress is best. Try lying flat on your back with pillows under your knees. You can also try lying on your side with your knees bent up towards your chest and a pillow between your knees. Avoid prolonged sitting. This puts more stress on the lower back than standing or walking. During the first two days after injury, apply an ICE PACK to the painful area for 20 minutes every 2-4 hours. This will reduce swelling and pain. HEAT (hot shower, hot bath or heating pad) works well for muscle spasm. You can start with ice, then switch to heat after two days. Some patients feel best alternating ice and heat treatments. Use the one method that feels the best to you. You may use acetaminophen (Tylenol) or ibuprofen (Motrin, Advil) to control pain, unless another pain medicine was prescribed. [NOTE: If you have chronic liver or kidney disease or ever had a stomach ulcer or GI bleeding, talk with your doctor before using these medicines.] Be aware of safe lifting methods and do not lift anything over 15 pounds until all the pain is gone. Follow Up with your doctor or this facility if your symptoms do not start to improve after one week. Physical therapy may be needed. [NOTE: If X-rays were taken, they will be reviewed by a radiologist. You will be notified of any new findings that may affect your care.] Get Prompt Medical Attention if any of the following occur: Pain becomes worse or spreads to your legs Weakness or numbness in one or both legs Loss of bowel or bladder control Numbness in the groin or genital area Tramadol Hydrochloride Oral tablet What is this medicine? TRAMADOL (TRA ma dole) is a pain reliever. It is used to treat moderate to severe pain in adults. How should I use this medicine? Take this medicine by mouth with a full glass of water. Follow the directions on the prescription label. If the medicine upsets your stomach, take it with food or milk. Do not take more medicine than you are told to take. Talk to your lead janitor regarding the use of this medicine in children. Special care may be needed. What side effects may I notice from receiving this medicine? Side effects that you should report to your doctor or health career technical education instructor as soon as possible: allergic reactions like skin rash, itching or hives, swelling of the face, lips, or tongue breathing difficulties, wheezing confusion itching light headedness or fainting spells redness, blistering, peeling or loosening of the skin, including inside the mouth seizures Side effects that usually do not require medical attention (report to your doctor or health career technical education instructor if they continue or are bothersome): constipation dizziness drowsiness headache nausea, vomiting What may interact with this medicine? Do not take this medicine with any of the following medications: MAOIs like Carbex, Eldepryl, Marplan, Nardil, and Parnate This medicine may also interact with the following medications: alcohol or medicines that contain alcohol antihistamines benzodiazepines bupropion carbamazepine or oxcarbazepine clozapine cyclobenzaprine digoxin furazolidone linezolid medicines for depression, anxiety, or psychotic disturbances medicines for migraine headache like almotriptan, eletriptan, frovatriptan, naratriptan, rizatriptan, sumatriptan, zolmitriptan medicines for pain like pentazocine, buprenorphine, butorphanol, meperidine, nalbuphine, and propoxyphene medicines for sleep muscle relaxants naltrexone phenobarbital phenothiazines like perphenazine, thioridazine, chlorpromazine, mesoridazine, fluphenazine, prochlorperazine, promazine, and trifluoperazine procarbazine warfarin What if I miss a dose? If you miss a dose, take it as soon as you can. If it is almost time for your next dose, take only that dose. Do not take double or extra doses. Where should I keep my medicine? Keep out of the reach of children. Store at room temperature between 15 and 30 degrees C (59 and 86 degrees F). Keep container tightly closed. Throw away any unused medicine after the expiration date. What should I tell my health care provider before I take this medicine? They need to know if you have any of these conditions: brain tumor depression drug abuse or addiction head injury if you frequently drink alcohol containing drinks kidney disease or trouble passing urine liver disease lung disease, asthma, or breathing problems seizures or epilepsy suicidal thoughts, plans, or attempt; a previous suicide attempt by you or a family member an unusual or allergic reaction to tramadol, codeine, other medicines, foods, dyes, or preservatives or trying to get breast-feeding What should I watch for while using this medicine? Tell your doctor or health career technical education instructor if your pain does not go away, if it gets worse, or if you have new or a different type of pain. You may develop tolerance to the medicine. Tolerance means that you will need a higher dose of the medicine for pain relief. Tolerance is normal and is expected if you take this medicine for a long time. Do not suddenly stop taking your medicine because you may develop a severe reaction. Your body becomes used to the medicine. This does NOT mean you are addicted. Addiction is a behavior related to getting and using a drug for a non-medical reason. If you have pain, you have a medical reason to take pain medicine. Your doctor will tell you how much medicine to take. If your doctor wants you to stop the medicine, the dose will be slowly lowered over time to avoid any side effects. You may get drowsy or dizzy. Do not drive, use machinery, or do anything that needs mental alertness until you know how this medicine affects you. Do not stand or sit up quickly, especially if you are an older patient. This reduces the risk of dizzy or fainting spells. Alcohol can increase or decrease the effects of this medicine. Avoid alcoholic drinks. You may have constipation. Try to have a bowel movement at least every 2 to 3 days. If you do not have a bowel movement for 3 days, call your doctor or health career technical education instructor. Your mouth may get dry. Chewing sugarless gum or sucking hard candy, and drinking plenty of water may help. Contact your doctor if the problem does not go away or is severe. You have been given the following additional information: Back Pain (Acute Or Chronic) Tramadol Hydrochloride Oral tablet No driving or operating machinery while taking medication. Sedative medication was given during your visit. No strenuous activity. Rest. (Electronically signed by Allen Reyes MD 02/07/2017 21:30)
--- NOTE | 2017-02-07 21:30 | ED MAR SUMMARY ---
..... Medication Administration Record [facility] [address] [place] [address] Patient: MARKUS VARGHESE Visit ID: [id number] 72y, F Weight: 102.9 kg Height/Length: 66 in BMI: 36.6 ALLERGIES: Sulfa Antibiotics, "most antibiotics", Codeine, morphine, Penicillins, Toradol, Tetanus Toxoids Start 17:07 02/05/2017 Alexander Vaelnzuela R.N., Stop 20:01 02/05/2017 Alexander Valenzuela R.N. Medication Administered: IV NS (SALINE), Dose: IV Fluids over 4 hour(s), Rate: 100 mL/hr, Dispensed: 1000 mL bag, Site: #1 left AC. Medication Ordered: IV NS : initial bolus none -, then 100 mL/hr for 4h (NOW); Routine. Given 17:02/05/2017 Alexander Valenzuela R.N. Medication Administered: DEMEROL [IVP] (MEPERIDINE HCL), Dose: 12.5 mg IVP, Site: #1 left AC. Medication Ordered: Demerol IV 12.5 mg (NOW). Given 17:11 02/05/2017 Alexander Valenzuela R.N. Medication Administered: ATIVAN [IVP] (LORAZEPAM), Dose: 0.5 mg IVP, Site: #1 left AC. Medication Ordered: Ativan IV 0.5 mg (NOW). Given 19:58 02/05/2017 Alexander Valenzuela R.N. Medication Administered: DEMEROL [IM] (MEPERIDINE HCL), Dose: 25 mg IM. Medication Ordered: Demerol IM 25 mg (NOW). Given 19:58 02/05/2017 Alexander Valenzuela R.N. Medication Administered: ZOFRAN ODT [PO] (ONDANSETRON), Dose: 4 mg Oral Disintegrating Tablets PO. Medication Ordered: Zofran ODT PO 4 mg (NOW). Given 00:42 02/06/2017 Tato Neumann R.N. Medication Administered: DEMEROL [IVP] (MEPERIDINE HCL), Dose: 12.5 mg IVP, Site: #2 left AC. Medication Ordered: Demerol IV 12.5 mg (HIGH ALERT MEDICATION, NOW).
--- NOTE | 2017-02-07 21:30 | ED MED RECONCILIATION SUMMARY ---
Patient: MARKUS VARGHESE Medication Reconciliation Report [facility] VisitID: [id number] [address] [place] [address] 72y, F Registration Date/Time: 02/05/2017 Weight: 102.9 kg Height/Length: 66 in. BMI: 36.6 ALLERGIES: "most antibiotics", Codeine, morphine, Penicillins, Sulfa Antibiotics, Tetanus Toxoids, Toradol The patient's Home Medications are listed below: CONTINUE TAKING THE FOLLOWING MEDICATIONS: Asophex Ativan Milk of Magnesia Oral Multivitamins Oral Tramadol The source(s) of the original Home Medication information: Not obtained. The following Medications were given to the patient in the Emergency Department: IV NS IV Fluids bolus 0, then 100 mL/hr, administered: 02/05/2017 5:07:00 PM Demerol [IVP] IVP 12.5 mg, administered: 02/05/2017 5:11:00 PM Ativan [IVP] IVP 0.5 mg, administered: 02/05/2017 5:11:00 PM Demerol [IM] IM 25 mg, administered: 02/05/2017 7:58:00 PM Zofran ODT [PO] PO 4 mg, administered: 02/05/2017 7:58:00 PM Demerol [IVP] IVP 12.5 mg, administered: 02/06/2017 12:42:00 AM The following Medications were prescribed to the patient: Ultram 50 mg: take 1-2 orally every 6 hours as needed for pain. Dispense fifteen (15). No refills. Substitution is permissible. -- Allen Reyes MD
== END 2017-02-06 00:56 | disposition home or self-care (01) ==
LOC: ED SRH 16:14
DX: M54.16 Radiculopathy, lumbar region (principal); M54.14 Radiculopathy, thoracic region; M54.6 Pain in thoracic spine; M54.5 Low back pain; Z88.5 Allergy status to narcotic agent; K21.9 Gastro-esophageal reflux disease without esophagitis; F17.210 Nicotine dependence, cigarettes, uncomplicated; E11.9 Type 2 diabetes mellitus without complications; Z88.2 Allergy status to sulfonamides; Z88.8 Allergy status to other drugs, medicaments and biological substances
CPT/HCPCS: 90004; 90100; 90469; 90616; 92235; 92530; 92610; 92720; 95059